=== PATIENT | male | born 1995 | race Caucasian/White ===

== ENCOUNTER 2019-05-08 13:23 | Emergency (ER) | payer MEDICAID ==
--- NOTE | 2019-05-08 14:13 | EDM.PDOC ---
ED HPI GENERAL MEDICAL PROBLEM - General Chief Complaint: Respiratory Problem Stated Complaint: SOB, COLD Time Seen by Provider: 05/08/19 14:02 Source of Information: Reports: Patient, RN Notes Reviewed History Limitations: Reports: No Limitations - History of Present Illness INITIAL COMMENTS - FREE TEXT/NARRATIVE: 23-year-old gentleman presents emergency department a complaint of cold-like symptoms he has been ill for the last 24 hours he does have cough with sputum production no fever no shortness of breath does complain of a dry throat - Related Data Allergies Allergy/AdvReac Type Severity Reaction Status Date / Time No Known Allergies Allergy Verified 05/08/19 13:42 Home Meds: Home Meds NK [No Known Home Meds] 05/08/19 [History] Past Medical History Musculoskeletal History: Reports: Back Pain, Chronic Psychiatric History: Reports: ADHD - Past Surgical History Head Surgeries/Procedures: Reports: None HEENT Surgical History: Reports: Tonsillectomy Musculoskeletal Surgical History: Reports: None Dermatological Surgical History: Reports: None Social & Family History - Tobacco Use Smoking Status *Q: Current Every Day Smoker Years of Tobacco use: 6 Packs/Tins Daily: 1 Used Tobacco, but Quit: No Second Hand Smoke Exposure: No - Caffeine Use Caffeine Use: Reports: Soda - Recreational Drug Use Recreational Drug Use: No ED ROS GENERAL - Review of Systems Review Of Systems: See Below Constitutional: Denies: Fever HEENT: Reports: Other (Dry throat) Respiratory: Reports: Cough, Sputum. Denies: Shortness of Breath Cardiovascular: Reports: No Symptoms GI/Abdominal: Reports: No Symptoms : Reports: No Symptoms Musculoskeletal: Reports: No Symptoms ED EXAM, GENERAL - Physical Exam Exam: See Below Exam Limited By: No Limitations General Appearance: Alert, WD/WN, No Apparent Distress Ears: Normal External Exam, Normal Canal, Hearing Grossly Normal, Normal TMs Nose: Normal Inspection, Normal Mucosa, No Blood Throat/Mouth: Normal Inspection, Normal Lips, Normal Teeth, Normal Gums, Normal Oropharynx, Normal Voice, No Airway Compromise Head: Atraumatic, Normocephalic Neck: Normal Inspection, Supple, Non-Tender, Full Range of Motion Respiratory/Chest: No Respiratory Distress, Lungs Clear, Normal Breath Sounds, No Accessory Muscle Use, Chest Non-Tender Cardiovascular: Regular Rate, Rhythm, No Murmur Course - Vital Signs Last Recorded V/S: Last Vital Signs Temp 97.9 F 05/08/19 13:42 Pulse 75 05/08/19 13:42 Resp 16 05/08/19 13:42 BP 135/89 05/08/19 13:42 Pulse Ox 98 05/08/19 13:42 Departure - Departure Time of Disposition: 14:12 Disposition: Home, Self-Care 01 Condition: Fair Clinical Impression: Viral syndrome - Discharge Information Instructions: Viral Respiratory Infection, [id number] Referrals: PCP,None [Primary Care Provider] - Forms: ED Department Discharge, ED Return to Work/School Form Sepsis Event Note - Evaluation Sepsis Screening Result: No Definite Risk - Focused Exam Vital Signs: Vital Signs Temp Pulse Resp BP Pulse Ox 05/08/19 13:42 97.9 F 75 16 135/89 98 05/08/19 13:38 97.9 F 75 16 135/89 98 Date Exam was Performed: 05/08/19 Time Exam was Performed: 14:10 - Assessment/Plan Plan: Assessment Acuity = acute Site and laterality = viral syndrome Etiology = unknown Manifestations = cough with sputum Location of injury = Home Lab values = none Plan Recommend symptomatic care at this time, follow-up with primary care in the next 3 to 5 days if not better This note was dictated using [employer] voice recognition software please call with any questions on syntax or grammar.
== END 2019-05-08 14:21 | disposition home or self-care (01) ==
LOC: JP.ED 13:23
DX: B34.9 Viral infection, unspecified (principal); F17.210 Nicotine dependence, cigarettes, uncomplicated
CPT/HCPCS: 99284